=== PATIENT | female | born 1935 | race Caucasian/White ===

== ENCOUNTER → 2016-08-06 | Outpatient (CLI) | payer MEDICARE, OTHER ==
[~2016-08-06] VITALS: Ht 157.5 cm; Wt 54.4 kg
[~2016-08-06] MED LIST: AMOXICILLIN500 M2 PO; ASPIRIN 81MG TA81 MG PO; CARDIZEM CD240 MG PO; DIGOX0.125 MG PO; DIGOXIN0.125 MG PO; DILTIAZEM CD 2240 MG PO; FLEXERIL10 MG PO; LORTAB 5/500 501 TAB PO; MOBIC15 MG PO; MULTIVITAMIN1 TAB PO; NOMEDS XX; OXYGEN IH; OXYGEN2 IH; PANTOPRAZOLE SO40 M1 PO; PEPCID40 MG PO; ULTRAM50 MG PO; XARELTO15 MG PO; XARELTO20 MG PO
== END ==
LOC: DIETICIAN 09:54
DX: E11.9 Type 2 diabetes mellitus without complications (principal); Z71.3 Dietary counseling and surveillance

== ENCOUNTER → 2017-02-16 | Outpatient (CLI) | payer MEDICARE, OTHER ==
--- NOTE | 2017-02-17 09:29 | RADIOLOGY REPORT PS360 ---
EXAM: CT LUNG LOW DOSE WO CONTRAST COMPARISON: None HISTORY: 62-year-old female asymptomatic with greater than 30 pack-year smoking history ORDERING PHYSICIAN: Paulo Sanchez MD PATIENT AGE: 82 years TECHNIQUE: The exam was performed on a [employer] Light Speed [address] scanner using 2.95 mGy CTDI. A low dose helical CT CHEST was performed on a multi-detector scanner The LDCT was performed in a facility that meets the criteria for the screening program. Data regarding this exam was submitted to [employer] which is an approved registry. The order for this exam indicates that it came as a result of a lung cancer screening counseling shard decision-making visit that included all the elements required of such a visit including smoking cessation. The radiologist interpreting this exam meets the [facility] criteria for the LDCT lung cancer screening program. The exam is reported using the Lung-RADS classification scale and reported to the ACR registry. NOTE: This study was performed for the specific purposes of lung cancer screening and is not an alternative to diagnostic chest CT. RADIATION DOSE: CTDI vol(CT dose Index-volume) = 2.95mG DLP (Dose Length Product) = 111.10 mGcm FINDINGS: Centrilobular emphysematous changes. Scattered fibrotic changes are noted. 2 mm noncalcified nodule right upper lobe. 4 mm calcified nodule right upper lobe medially. Calcified granuloma right lung base posteriorly. Fibrotic changes are present in the left lung base with some mild bronchiectasis in the left lower lobe posterior medially. There are coronary artery calcifications. IMPRESSION: 1. Lung RADS Category: 2, benign 2. Other findings: Centrilobular emphysema. Coronary artery disease RECOMMENDATIONS: 12 month LDCT follow-up
== END ==
LOC: RAD 08:12
DX: Z87.891 Personal history of nicotine dependence (principal); Z12.2 Encounter for screening for malignant neoplasm of respiratory organs
CPT/HCPCS: G0297